=== PATIENT | female | born 1965 | race Caucasian/White ===

== ENCOUNTER 2019-03-08 10:31 | Emergency (ER) | payer OTHER ==
[2019-03-08 10:47] VITALS: BP 140/78
--- NOTE | 2019-03-08 11:00 | UC ---
Back Pain HPI - HPI Summary HPI Summary: 53-year-old female presents with complaints of left upper back pain. 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 Describes pain as a "pulling" sensation. Worsens if she tries to stand or sit up straight as well as with any type of movement. Denies fever, chills, chest pain, palpitations, shortness of breath, weakness or dizziness, abdominal pain, nausea, vomiting, extremity weakness, numbness, or tingling. - History of Current Complaint Chief Complaint: UCBackPain Stated Complaint: SHOULDER INJURY Time Seen by Provider: 03/08/19 10:47 Hx Obtained From: Patient Hx Last Menstrual Period: 09/04/16 Pain Intensity: 8 - Allergies/Home Medications Allergies/Adverse Reactions: Allergies Allergy/AdvReac Type Severity Reaction Status Date / Time No Known Allergies Allergy Verified 03/08/19 10:40 Home Medications: Home Medications Meloxicam 7.5 mg PO DAILY 03/08/19 [History Confirmed 03/08/19] PMH/Surg Hx/FS Hx/Imm Hx Previously Healthy: Yes - Denies significant PMH - Surgical History Surgical History: Yes Surgery Procedure, Year, and Place: tubal ligation - Family History Known Family History: Positive: Diabetes - Mother Negative: Cardiac Disease, Hypertension - Social History Occupation: Employed Full-time Lives: With Family Alcohol Use: None Substance Use Type: None Smoking Status (MU): Never Smoked Tobacco - Immunization History Most Recent Influenza Vaccination: none Review of Systems All Other Systems Reviewed And Are Negative: Yes Constitutional: Negative: Fever, Chills Skin: Negative: Rash Respiratory: Negative: Shortness Of Breath Cardiovascular: Negative: Palpitations, Chest Pain Gastrointestinal: Negative: Abdominal Pain, Vomiting, Nausea Genitourinary: Positive: Negative Musculoskeletal: Positive: Negative Neurological: Negative: Weakness, Paresthesia, Numbness Psychological: Positive: Negative Physical Exam - Summary Physical Exam Summary: GENERAL APPEARANCE: Well developed, obese, alert and cooperative, and who appears uncomfortable being unable to stand or sit up strait. NECK: Neck supple, non-tender. CARDIAC: Normal S1 and S2. No S3, S4 or murmurs. Rhythm is regular. There is no peripheral edema, cyanosis or pallor. Extremities are warm and well perfused. Capillary refill is less than 2 seconds. Peripheral pulses intact. LUNGS: Clear to auscultation without rales, rhonchi, wheezing or diminished breath sounds. ABDOMEN: Positive bowel sounds. Soft, nondistended, nontender. No guarding or rebound. No masses or hepatosplenomegally. MUSKULOSKELETAL: ROM intact to all extremities. No joint erythema or tenderness. Normal muscular development. Normal gait. BACK: Examination of the spine reveals no spinal deformity or midline tenderness. There is paraspinous tenderness with muscular spasm to the left thoracic back. SKIN: Skin normal color, texture and turgor with no lesions or eruptions. Triage Information Reviewed: Yes Vital Signs: Initial Vital Signs Temp 98 F 03/08/19 10:42 Pulse 75 03/08/19 10:42 Resp 20 03/08/19 10:42 BP 140/78 03/08/19 10:42 Pulse Ox 97 03/08/19 10:42 Vital Signs Reviewed: Yes Back Pain Course/Dx - Course Course Of Treatment: 53-year-old female presents with complaints of left upper back pain. 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 Describes pain as a "pulling" sensation. Worsens if she tries to stand or sit up straight as well as with any type of movement. Denies fever, chills, chest pain, palpitations, shortness of breath, weakness or dizziness, abdominal pain, nausea, vomiting, extremity weakness, numbness, or tingling. Afebrile. Hypertensive otherwise vital signs stable. Patient had no spinal deformity or midline tenderness, there was paraspinous tenderness with muscular spasm to the left thoracic back, and exam otherwise unremarkable. Discussed with patient that her history and exam are consistent with a muscle strain of the upper back. She already has prescriptions for meloxicam and cyclobenzaprine and she was encouraged to use these for her symptoms as well as heat therapy. Patient is to follow-up with her primary care provider in 5-7 days if symptoms are not improving. Anticipatory guidance and warning symptoms were reviewed with the patient. Verbalizes understanding and agrees with plan of care. - Differential Dx/Diagnosis Differential Diagnosis/HQI/PQRI: Herniated Disc, Strain, Other Provider Diagnosis: Strain of thoracic back region Discharge - Sign-Out/Discharge Documenting (check all that apply): Patient Departure All imaging exams completed and their final reports reviewed: No Studies - Discharge Plan Condition: Stable Disposition: HOME Patient Education Materials: Back Pain (ED) Forms: *Work Release Referrals: Aimee Kerns PA [Primary Care Provider] - 5 Days Additional Instructions: Your history and exam are consistent with an upper back strain. Apply a heating pad to the affected area for 15-20 minutes at least 4 times a day to help with pain and relax the muscles. Take your meloxicam according to directions as needed for pain. Use your cyclobenzabrine according to directions as needed for severe pain or spasm. This will cause drowsiness so do not take and drive or operate machinery according to directions. Follow up with your primary care provider in 5-7 days if symptoms do not improve. Your blood pressure was elevated in the clinic today. It is recommended he follow-up with your primary care provider within 4 weeks for recheck of your blood pressure. Seek immediate medical attention if you have chest pain, shortness of breath, weakness or dizziness, abdominal pain, vomiting, severe pain not managed with pain medication, you are unable to walk or bear any weight, develop numbness or tingling in legs, lose control of your bowel or bladder, or have any worsening of symptoms. - Billing Disposition and Condition Condition: STABLE Disposition: Home
== END 2019-03-08 11:07 | disposition home or self-care (01) ==
LOC: UCEAST 10:31
DX: S29.012A Strain of muscle and tendon of back wall of thorax, initial encounter (principal); X50.3XXA Overexertion from repetitive movements, initial encounter; X50.9XXA Other and unspecified overexertion or strenuous movements or postures, initial encounter; Y93.E2 Activity, laundry; Y92.89 Other specified places as the place of occurrence of the external cause; Y99.0 Civilian activity done for income or pay
CPT/HCPCS: 99211; G0463